=== PATIENT | male | born 1970 | race Caucasian/White ===

== ENCOUNTER 2022-01-20 18:02 | Emergency (ER) | payer OTHER, SELFPAY ==
[2022-01-20 18:03] VITALS: BP 178/138; PULSE 97; RESP 16; TEMP 36.1; O2SAT 97; BMI 21.4
--- NOTE | 2022-01-20 18:10 | RAD_ITS ---
STUDY: X-RAY - PELVIS AND LEFT HIP REASON FOR EXAM: Male, 51 years old. PAIN TECHNIQUE: 3 views of the pelvis and hip. COMPARISON: None. FINDINGS: There is a non-specific bowel gas pattern. Normal visualized soft tissue structures. Normal bilateral iliac wings, sacroiliac joints and visualized sacrum. Normal bilateral superior and inferior pubic rami. Normal pubic symphysis. Normal bilateral ischial tuberosities. Normal visualized femoral head. Normal acetabulum. Normal hip joint. RAD/HIP, UNI W/ Pelvis 2-3 Views IMPRESSION: Normal x-ray examination of the pelvis and hip. Electronically Signed: Aayush Marsh MD at 18:58 EDT ,
--- NOTE | 2022-01-20 19:03 | EX.ED.DYSGE1 ---
HPI <TIMA Griffith - Last Filed: 01/20/22 20:24> History of Present Illness Chief Complaint: Lower Extremity Injury Narrative Narrative: 51-year-old male with no significant medical history does not have a PCP presents the emergency department with left-sided back pain that radiates down his left buttock to his left leg. Patient has had this problem over the last several months that has been intermittent. Patient does see a chiropractor however for the last week he has been unable to get his pain under control. Patient did see his chiropractor however it is not helping. Patient denies any weakness in his lower extremities, patient denies any fevers, chills, bowel or bladder incontinence. Patient denies any trauma to the area. PFSH <TIMA Griffith - Last Filed: 01/20/22 20:24> PFSH Medical History no medical history no medical history Home Medications cyclobenzaprine 10 mg PO BID PRN #10 tab 01/20/22 [Rx Last Taken Unknown] naproxen [Naprosyn] 500 mg PO BID PRN #20 tab 01/20/22 [Rx Last Taken Unknown] oxycodone-acetaminophen [Percocet] 1 tab PO Q6H PRN 3 Days #10 tab 01/20/22 [Rx Last Taken Unknown] Allergy/AdvReac Type Severity Reaction Status Date / Time No Known Allergies Allergy Verified 10/08/21 11:47 Surgical History Hx of appendectomy Social History Smoking Status: Current every day smoker tobacco type: cigarettes ROS <TIMA Griffith - Last Filed: 01/20/22 20:24> ROS ED ROS Narrative Constitutional: Negative for fever, chills, weight loss or gain, weakness Eyes: Negative for vision loss, vision change, double vision ENT: Negative for any hearing changes, ringing in the ears, dizziness, discharge, pain Nose: Negative for any congestion, runny nose, sinus pain, allergies Throat: Negative for any sore throat hoarseness, voice changes, Cardiovascular: Negative for any chest pain, tightness, palpitations, racing heartbeat Respiratory: Negative for any coughs, sputum production, coughing, hemoptysis, shortness of breath, shortness of breath on exertion, Gastrointestinal: Negative for any abdominal pain, nausea, vomiting, diarrhea, constipation, blood in stool, blood in vomit : Negative for any urinary frequency, incontinence, dysuria, retention, blood in urine Muscle skeletal: Negative for any muscle joint pain, stiffness, myalgias, arthralgias, neck pain. Positive for left-sided back pain that radiates down her left leg. Neurological: Negative for any headache, head injury, dizziness, syncope, numbness or tingling Skin: Negative for any rashes, lumps, itching, abrasions, lacerations Psychiatric: Negative for any depression, anxiety, stress, suicidal ideation, homicidal ideation Hematologic: Negative for any easy bruising, excessive bruising, easy bleeding Allergies: Negative for any eczema, hives, rash EXAM <TIMA Griffith - Last Filed: 01/20/22 20:24> Physical Exam Const Vital Signs: 01/20/22 18:03 01/20/22 20:36 Temperature 96.9 F L Temperature Source Temporal Pulse Rate 97 81 Respiratory Rate 16 16 Blood Pressure 178/138 H 146/96 H Blood Pressure Mean 151 Pulse Ox 97 98 Oxygen Delivery Method Room Air Positive well nourished, well developed and obese General Appearance ED: well developed Nutritional Appearance: obese Eyes PERRL and EOMs intact bilaterally Neck no lymphadenopathy and supple Chest Wall inspection of chest normal and palpation of chest normal Resp normal respiratory effort and clear to auscultation bilaterally Cardio regular rate and regular rhythm GI normal to inspection, nondistended, normoactive bowel sounds and non-tender Back/Spine no CVA tenderness Back/Spine Narrative: Patient has pain to the left side of the lumbar spine, worsening pain to palpation to the left buttock, this since shooting pains down to the patient's knee. Negative for any weakness. Extensor mechanisms are intact. Lumbar Spine / Lower Back: lumbar spinal tenderness Extremity normal to inspection Neuro oriented x3 and CN's II-XII intact bilaterally Sensorium / Orientation: alert Psych mental status grossly normal Skin no rashes or lesions noted <Moise Munroe MD - Last Filed: 01/20/22 21:14> Physical Exam Const Vital Signs: 01/20/22 18:03 01/20/22 20:36 Temperature 96.9 F L Temperature Source Temporal Pulse Rate 97 81 Respiratory Rate 16 16 Blood Pressure 178/138 H 146/96 H Blood Pressure Mean 151 Pulse Ox 97 98 Oxygen Delivery Method Room Air [facility] <TIMA Griffith - Last Filed: 01/20/22 20:24> [facility] Narrative Medical decision making narrative: Patient arrives in moderate distress secondary to left lower lumbar pain, hip pain, radiating down his left leg. Patient denies any trauma, x-rays were done of bilateral hips, lumbar sacral spine, these were unremarkable for any acute process or osseous abnormality. Radiology exams were read by the ER physician patient was given by mouth oxycodone, injections of Toradol, muscle relaxer, he did have relief with these treatments. At this time, patient be diagnosed with sciatica, lumbar strain. Patient will be given a PCP to follow-up with, and instructed to return for any worsening symptoms. Patient's physical examination was negative for any red flag signs such as cauda equina, spinal abscess. Patient given strict return precautions to return for any worsening back pain, urinary or bowel incontinence, fever or chills. Patient stable for discharge. He will be sent home on anti-inflammatories, pain medicine as well as muscle relaxers. Lab Data Attestation: I reviewed the patient's lab results. Radiography Diagnostic Testing: Clinical Impression(s) from Imaging Studies Hip/Pelvis X-Ray 01/20/22 18:10 IMPRESSION: Normal x-ray examination of the pelvis and hip. Electronically Signed: Aayush Marsh MD at 18:58 EDT , <Moise Munroe MD - Last Filed: 01/20/22 21:14> [facility] Narrative Medical decision making narrative: ATTENDING NOTE: Dr. Munroe: The patient was seen in conjunction with the PA-C/nurse practitioner. I performed a history and physical, and agree with the management of this patient. I agree with noted documentation and plan. I discussed the plan of care and final disposition with the physician associate/nurse practitioner. Left hip and buttocks pain, history of sciatica. Afebrile. Vital signs noted. Neurovascular intact bilateral lower extremities. No vertebral point tenderness or bony step-off of lumbar spine. Mild tenderness to palpation sciatic notch. Analgesia. Check x-rays. Discharge. Radiography Diagnostic Testing: Clinical Impression(s) from Imaging Studies Hip/Pelvis X-Ray 01/20/22 18:10 IMPRESSION: Normal x-ray examination of the pelvis and hip. Electronically Signed: Aayush Marsh MD at 18:58 EDT Reading Location ID and State: [facility] / [place] Tel , Service support , Discharge Plan Triage Chief Complaint: Lower Extremity Injury ED Midlevel Provider: Cristiano Willson ED Provider: Moise Munroe Dx/Rx/DC Orders Clinical Impression: Acute lumbosacral myofascial strain, Sciatica Instructions: ED Back Sprain/Strain, ED Sciatica Prescriptions: New oxycodone-acetaminophen [Percocet] 5-325 mg tablet 1 tab PO Q6H PRN (Reason: pain) 3 Days Qty: 10 RF: 0 cyclobenzaprine 10 mg tablet 10 mg PO BID PRN (Reason: muscle spasm) Qty: 10 RF: 0 naproxen [Naprosyn] 500 mg tablet 500 mg PO BID PRN (Reason: pain) Qty: 20 RF: 0 Stand Alone Forms: ED Work / School Excuse Primary Care Provider: Care Physician,No Primary Referrals: Raghav,Karrie, DO [NON-STAFF] - Care Physician,No Primary [Primary Care Provider] - Activity Restrictions/Additional Instructions: Please follow-up with your referral for primary care physician. Please return for any worsening symptoms. You are unable to take the Percocet or Flexeril while you are at work as the side effect is drowsiness Print Language: Turkmen Disposition Disposition: Home, Self Care Discharge Date/Time: 01/20/22 20:37
--- NOTE | 2022-01-20 19:20 | RAD_ITS ---
STUDY: X-RAY - LUMBAR SPINE REASON FOR EXAM: Male, 51 years old. Back pain TECHNIQUE: 3 view(s) of the lumbar spine were obtained. COMPARISON: None FINDINGS: Normal lumbar lordosis. There is no substantial scoliosis. There is a normal alignment of the vertebrae. There is multilevel endplate spondylosis of the lumbar vertebrae. There is multi-level degenerative disc disease with multi-level disc space narrowing. The soft tissue structures are unremarkable. RAD/L/S Spine Min 4 Views IMPRESSION: Degenerative changes of the spine, as detailed above. Electronically Signed: Aayush Marsh MD at 21:12 EDT ,
[2022-01-20] MEDS: oxyCODONE 5 MG Tablet PO (19:57)
[2022-01-20] MEDS: Ketorolac 15 MG/ML Vial IM (19:58)
[2022-01-20] MEDS: Orphenadrine 60 MG/2 ML Ampul IM (20:00)
[2022-01-20 20:36] VITALS: BP 146/96; PULSE 81; RESP 16; O2SAT 98
== END 2022-01-20 20:37 | disposition home or self-care (01) ==
PROVIDERS: Emergency Provider Emergency Medicine; Visit Provider Emergency Medicine
DX: S39.012A Strain of muscle, fascia and tendon of lower back, initial encounter (principal); M25.552 Pain in left hip; M54.40 Lumbago with sciatica, unspecified side; F17.210 Nicotine dependence, cigarettes, uncomplicated; Y33.XXXA Other specified events, undetermined intent, initial encounter
CPT/HCPCS: 72110; 73502; 96372; 99283

== ENCOUNTER 2022-02-12 08:00 | Outpatient (CLI) | payer SELFPAY ==
--- NOTE | 2022-02-12 08:11 | MRI_ITS ---
STUDY: MRI LUMBAR SPINE WITHOUT CONTRAST REASON FOR EXAM: Male, 51 years old. LUMBAR RADICULOPATHY,ACUTE TECHNIQUE: Standardized fat and water weighted pulse sequences were obtained in the sagittal and axial planes. Limited by motion artifact. COMPARISON: Lumbar spine x-ray dated January 20, 2022 FINDINGS: No visualized acute fracture or compression deformity. There is straightening of the normal lumbar lordosis. There is no substantial scoliosis. Normal conus medullaris that terminates at the T12-L1 level. L1-2: Normal endplates. Normal disc height, hydration and morphology. Normal bilateral facet joints. Normal central canal and bilateral lateral recesses. Normal bilateral intervertebral neural foramina. L2-3: Normal endplates. Diffuse disc desiccation with minimal annular bulging. Normal bilateral facet joints. Normal central canal and bilateral lateral recesses. Normal bilateral intervertebral neural foramina. L3-4: Moderate disc space narrowing with a diffuse disc spur complex. Retrolisthesis of L3 on L4 of 3 mm. Superimposed left paracentral disc protrusion. Mild central canal stenosis and bilateral lateral recess stenosis. Mild facet joint and ligament of flava hypertrophy. Normal bilateral intervertebral neural foramina. L4-5: Diffuse disc desiccation and mild disc space narrowing with minimal annular bulging and anterior endplate spurring. Mild facet joint hypertrophy. Normal central canal and bilateral lateral recesses. Normal bilateral intervertebral neural foramina. L5-S1: Normal endplates. Moderate disc space narrowing with a mild diffuse disc bulge. Retrolisthesis of L5 on S1 of no more and a 2 mm. Normal bilateral facet joints. Normal central canal and bilateral lateral recesses. Normal bilateral intervertebral neural foramina. Normal visualized sacral ala. Normal visualized paraspinous soft tissue structures. MRI/Spine Lumbar (Routine) IMPRESSION: 1. Multilevel degenerative changes, as described above. 2. Mild central canal stenosis at L3-L4. Electronically Signed: Eusebio Ramirez MD at 13:43 EDT ,
== END 2022-02-12 23:59 | disposition home or self-care (01) ==
PROVIDERS: Visit Provider Internal Medicine
DX: M54.16 Radiculopathy, lumbar region (principal)
CPT/HCPCS: 72148